=== PATIENT | male | born 1965 | race Two or more races ===

== ENCOUNTER 2018-05-09 12:55 | Inpatient (IN) | payer MEDICARE, OTHER ==
[~2018-05-09] VITALS: Ht 167.6 cm; Wt 97.1 kg
[2018-05-09] MEDS ORDERED: MAG HYDROX/AL HYDROX/SIMETH 30 ML UDC PO PRN (17:30)
[2018-05-09] MEDS ORDERED: ACETAMINOPHEN 325 MG TABLET PO PRN (17:30)
[2018-05-09] MEDS ORDERED: MAGNESIUM HYDROXIDE 30 ML UDC PO PRN (17:30)
--- NOTE | 2018-05-09 19:00 | NUR ---
GPS TEST OPERATOR NOTES: ADMITTED A 52YO MALE FROM [facility] ON 5150 HOLD FOR GRAVE DISABILITY. PATIENT WAS INITIALLY ADMITTED BY DAY SHIFT STAFF. PATIENT SEEN BY MANAGER DATA WAREHOUSE WALKING AROUND THE UNIT. PER HOLD PATIENT WAS FOUND UNRESPONSIVE INSIDE HIS VEHICLE, HE'S LIVING IN HIS CAR FOR SEVERAL WEEKS NOW, UNABLE TO STATE PLAN FOR SELF CARE, AND PATIENT WAS CONFUSED AND AGITATED. UPON FACE TO FACE EVALUATION, PATIENT PRESENTS ALERT AND ORIENTED X2-3, AMBULATORY, APPEARS UNKEMPT, DISHEVELED, POOR HYGIENE. NOT ABLE TO FOLLOW THROUGH A MEANINGFUL CONVERSATION. MANAGER DATA WAREHOUSE ASKED PATIENT TO SIGN ADMISSION PAPERS, PATIENT INITIALLY SIGNED A FEW PAGES OF THE ADMISSION PACKET, HOWEVER TOWARDS THE MIDDLE PART, PATIENT STARTED TO CRUMPLE PAPERS, AND LUNA INCOMPREHENSIBLE FIGURES ON THE ADMISSION PAPERS. ALL THESE PAPERS PLACED IN THE CHART AND WITNESSED BY MANAGER DATA WAREHOUSE. PATIENT GIVEN A QUICK ORIENTATION OF THE UNIT, STAFF, CARE PLAN AND DOCTORS. PATIENT EXPLAINED REGARDING HIS HOLD, PATIENT RESPONDED IN A SARCASTIC WAY, STATING "I AM ONLY HERE UNTIL 1238 PM TOMORROW" MANAGER DATA WAREHOUSE THEN EXPLAINED THAT HE IS ON A LEGAL HOLD AND THAT HE NEEDS TO BE EVALUATED BY THE DOCTOR FIRST. THE PATIENT DID NOT AGREE TO WHAT THE MANAGER DATA WAREHOUSE SAID, SO HE LEFT THE STATION MUMBLING AND DISAPPOINTED OF THE NURSE'S RESPONSE. PATIENT ALSO NOTED TO BE GUARDED AND UNPREDICTABLE, SUSPICIOUS OF THE SURROUNDINGS AROUND HIM. HE IS ALSO NOTED TO BE ANSWERING QUESTIONS INCONGRUENT TO THE TOPIC. DR. GOLDSMITH AND YUN MORGAN MADE AWARE OF THE ADMISSION, CATHY REMINDED OF THE MEDICATIONS FOR RECONCILIATION. HE CALLED THE UNIT STATING THAT HE WILL STUDY THROUGH THE LIST OF MEDICATIONS THE PATIENT HAS AN EXTENSIVE HISTORY MEDICALLY. ACCUCHECK DONE. SKIN AND BODY ASSESSMENT DONE WITH ASTRID OZUNA. NOTED SCABBING AND REDNESS ON THE ON BOTH ARMS/WRISTS AREA, AND ON KNEE AREA. PICTURES TAKEN AND PLACED IN THE CHART.PATIENT WAS COOPERATIVE THROUGHOUT THIS PROCESS OF THE ADMISSION. BELONGINGS AND CONTRABAND CHECKED. Q15 MIN CHECKS INITIATED. CARE PLAN ACKNOWLEDGED AND CARRIED OUT. SAFETY AND FALL PRECAUTIONS OBSERVED. WILL MONITOR PATIENT'S MOOD AND BEHAVIOR.
[2018-05-09 20:00] VITALS: BP 137/74
[2018-05-09] MEDS ORDERED: DEXTROSE 50%-WATER 50 ML DISP.SYRIN IV PRN ×2 (21:00→21:30)
[2018-05-09] MEDS ORDERED: INSULIN REGULAR, HUMAN 100 UNIT/ML 3 ML VIAL SQ PRN (21:00)
[2018-05-09] MEDS ORDERED: BLOOD SUGAR DIAGNOSTIC 1 EACH STRIP VI SCH (22:00)
[2018-05-09] MEDS ORDERED: ENOX40DI SUBCUT (22:02)
[2018-05-09] MEDS ORDERED: INSU100V7 SQ (22:02)
[2018-05-09] MEDS ORDERED: ATOR40TA PO (22:02)
[2018-05-09] MEDS ORDERED: SPIR25TA6 PO (22:02)
[2018-05-09] MEDS ORDERED: DIVA500T4 PO (22:02)
[2018-05-09] MEDS ORDERED: LISI2.5T2 PO (22:02)
[2018-05-09] MEDS ORDERED: LEVO88TA5 PO (22:02)
[2018-05-09] MEDS ORDERED: NICO-676 TP (22:02)
[2018-05-09] MEDS ORDERED: BUDE10.22 INH (22:02)
[2018-05-09] MEDS ORDERED: ALLO300T2 PO (22:02)
[2018-05-09] MEDS ORDERED: INSU100C10 SQ (22:02)
[2018-05-09] MEDS ORDERED: FURO20TA4 PO (22:02)
[2018-05-09] MEDS ORDERED: RANI300T4 PO (22:02)
[2018-05-09] MEDS ORDERED: BENZ2TAB7 PO (22:02)
[2018-05-09] MEDS ORDERED: RISP2TAB23 PO (22:02)
[2018-05-09] MEDS: BLOOD SUGAR DIAGNOSTIC 1 EACH STRIP IN SCH (22:23)
[2018-05-09] MEDS: *INSULIN REGULAR(HUMULIN R)HUM 100 UNIT/ML VIAL SQ PRN (23:17)
--- NOTE | 2018-05-10 06:02 | NUR ---
GPS RN NOTES: PATIENT REFUSED TO HAVE THE MRSA BE DONE. PER PATIENT "I DON'T THINK I HAVE IT". WILL ENDORSE TO DAY SHIFT NURSE.
[2018-05-10] MEDS: BLOOD SUGAR DIAGNOSTIC 1 EACH STRIP IN SCH ×4 (07:30→22:06)
[2018-05-10 08:00] VITALS: BP 156/85
[2018-05-10 08:05] LABS: ALBUMIN 3.6 g/dL (3.4-5.0); BILIRUBIN,TOTAL 0.6 mg/dL (0.2-1.0); CALCIUM, SERUM 9.2 mg/dL (8.5-10.1); CREATININE 1.1 mg/dL (0.6-1.3); POTASSIUM 4.1 mmol/L (3.5-5.1); TOTAL PROTEIN, SERUM 6.9 g/dL (6.4-8.2)
[2018-05-10 16:00] VITALS: BP 145/76
[2018-05-10] MEDS: risperiDONE 1 MG TABLET PO SCH (18:03)
[2018-05-10] MEDS: BENZTROPINE MESYLATE (1 MG) 1 MG TABLET PO SCH (18:04)
[2018-05-10] MEDS: LORAZEPAM 0.5 MG TABLET PO PRN (18:05)
[2018-05-10] MEDS: ATORVASTATIN 40 MG TABLET PO SCH (18:22)
[2018-05-10] MEDS: INSULIN LISPRO/ASPART 100 UNIT/ML CARTRIDGE SQ SCH (18:27)
--- NOTE | 2018-05-10 19:30 | NUR ---
Received pt awake and in bed; no s/s or complaints of pain at this time. Pt is displaying no s/s of acute/apparent distress at this time. Pt's RR is WNL: unlabored with equal rise and fall of the chest. Pt. is A&Ox3 on room air with a SpO2 of 98. Pt. is med compliant, labile mood, and irritable. Pt denies SI/HI at this time. Pt. assisted with turning and repositioning q2hrs and PRN for comfort and circulation. Pt. has no needs at this time except a "diet coke" but unable to obtain. Pt. educated on the use of the call santos. Pt bed side rails up x2 for safety, bed is locked and in low position; will continue to monitor and maintain safety.
[2018-05-10 20:00] VITALS: BP 150/73
[2018-05-10] MEDS: DIVALPROEX SODIUM 500 MG TABLET.DR PO SCH (20:21)
[2018-05-10] MEDS: INSULIN GLARGINE, 100 UNIT/ML CARTRIDGE SQ SCH (22:12)
[2018-05-10] MEDS: *INSULIN REGULAR(HUMULIN R)HUM 100 UNIT/ML VIAL SQ PRN (22:14)
[2018-05-11] MEDS: BLOOD SUGAR DIAGNOSTIC 1 EACH STRIP IN SCH ×4 (07:41→21:42)
[2018-05-11 08:00] VITALS: BP 142/80
[2018-05-11] MEDS: INSULIN REGULAR, HUMAN 100 UNIT/ML 3 ML VIAL SQ PRN ×3 (08:15→17:36)
[2018-05-11] MEDS: INSULIN LISPRO/ASPART 100 UNIT/ML CARTRIDGE SQ SCH ×2 (08:16→17:38)
[2018-05-11] MEDS: FLUTICASONE/VILANTEROL 1 EACH BLST.W.DEV IH SCH (08:33)
[2018-05-11] MEDS: PANTOPRAZOLE 40 MG TABLET.DR PO SCH (08:36)
[2018-05-11] MEDS: LEVOTHYROXINE SODIUM 88 MCG TABLET PO SCH (08:36)
[2018-05-11] MEDS: BENZTROPINE MESYLATE (1 MG) 1 MG TABLET PO SCH ×2 (08:37→16:45)
[2018-05-11] MEDS: risperiDONE 1 MG TABLET PO SCH ×2 (08:37→16:45)
[2018-05-11] MEDS: DIVALPROEX SODIUM 500 MG TABLET.DR PO SCH ×2 (08:37→21:42)
[2018-05-11] MEDS: SPIRONOLACTONE 25 MG TABLET PO SCH ×2 (08:40→16:44)
[2018-05-11] MEDS: NICOTINE PATCH (14MG) 14 MG PATCH.TD24 TD SCH (08:41)
[2018-05-11] MEDS: LISINOPRIL (5MG) 5 MG TABLET PO SCH (08:41)
[2018-05-11] MEDS: FUROSEMIDE 20 MG TABLET PO SCH (09:17)
[2018-05-11] MEDS: ALLOPURINOL 100 MG TABLET PO SCH (09:17)
--- NOTE | 2018-05-11 11:57 | NUR ---
KWADWO called the pt's father, Misha ([phone]), and left a message on his voicemail stating that the SW would like to discuss the pt's treatment and discharge plan when he has an opportunity.
--- NOTE | 2018-05-11 12:34 | NUR ---
SW called the pt's father, Misha Pino ([phone]), and discussed the pt's treatment and discharge plan. The SW informed him that the pt's psychiatrist, Dr. Blackman, is recommending that the pt be placed in a facility short term. The SW explained how the facility would benefit the pt and the pt's father requested that the pt be placed somewhere local to him. SW stated that she would send out referrals but cannot guarantee that he will get accepted. SW informed the pt's father that she would keep him updated.
--- NOTE | 2018-05-11 12:36 | NUR ---
Initial Discharge Plan: Pt currently lives alone in a [address] apartment located at [address] [place] [address]. Per pt, he would like to return when he is discharged from the hospital. Pt's psychiatrist, Dr. Blackman, would like the pt to be placed in a facility short term before returning home. SW will work with the pt and the MD regarding appropriate discharge planning. SW will form a safe and proper discharge.
[2018-05-11 16:00] VITALS: BP 152/85
[2018-05-11] MEDS: ATORVASTATIN 40 MG TABLET PO SCH (17:29)
[2018-05-11 20:00] VITALS: BP 139/79
[2018-05-11] MEDS: INSULIN GLARGINE, 100 UNIT/ML CARTRIDGE SQ SCH (21:55)
[2018-05-12 08:00] VITALS: BP 142/79
[2018-05-12] MEDS: BLOOD SUGAR DIAGNOSTIC 1 EACH STRIP IN SCH ×4 (08:13→23:05)
[2018-05-12] MEDS: INSULIN REGULAR, HUMAN 100 UNIT/ML 3 ML VIAL SQ PRN ×3 (08:17→17:03)
[2018-05-12] MEDS: LISINOPRIL (5MG) 5 MG TABLET PO SCH (08:19)
[2018-05-12] MEDS: LEVOTHYROXINE SODIUM 88 MCG TABLET PO SCH (08:19)
[2018-05-12] MEDS: SPIRONOLACTONE 25 MG TABLET PO SCH ×2 (08:19→16:09)
[2018-05-12] MEDS: risperiDONE 1 MG TABLET PO SCH ×2 (08:19→16:09)
[2018-05-12] MEDS: ALLOPURINOL 100 MG TABLET PO SCH (08:20)
[2018-05-12] MEDS: FUROSEMIDE 20 MG TABLET PO SCH (08:20)
[2018-05-12] MEDS: BENZTROPINE MESYLATE (1 MG) 1 MG TABLET PO SCH ×2 (08:20→16:09)
[2018-05-12] MEDS: PANTOPRAZOLE 40 MG TABLET.DR PO SCH (08:20)
[2018-05-12] MEDS: NICOTINE PATCH (14MG) 14 MG PATCH.TD24 TD SCH (08:21)
[2018-05-12] MEDS: FLUTICASONE/VILANTEROL 1 EACH BLST.W.DEV IH SCH (08:21)
[2018-05-12] MEDS: DIVALPROEX SODIUM 500 MG TABLET.DR PO SCH ×2 (08:31→23:04)
[2018-05-12] MEDS: INSULIN LISPRO/ASPART 100 UNIT/ML CARTRIDGE SQ SCH ×2 (08:32→17:35)
[2018-05-12 16:00] VITALS: BP 146/85
[2018-05-12] MEDS: ATORVASTATIN 40 MG TABLET PO SCH (17:02)
--- NOTE | 2018-05-12 19:45 | NUR ---
RN NOTES Received pt awake in the hallway; no s/s or complaints of pain at this time. Pt is displaying no s/s of acute/apparent distress at this time. Pt's RR is WNL: unlabored with equal rise and fall of the chest. Pt. is A&Ox2 on room air with a SpO2 of 98. Pt. is med compliant, restless and irritable. Pt denies SI/HI at this time. Pt. has been asking to change his room without explanations.Pt. educated on the use of the call santos. Pt bed side rails up x2 for safety, bed is locked and in low position; will continue to monitor and maintain safety.
[2018-05-12 20:00] VITALS: BP 129/69
[2018-05-12] MEDS: ZOLPIDEM TARTRATE 10 MG TABLET PO PRN (23:04)
[2018-05-12] MEDS: INSULIN GLARGINE, 100 UNIT/ML CARTRIDGE SQ SCH (23:12)
[2018-05-13 08:00] VITALS: BP 145/87
[2018-05-13] MEDS: BLOOD SUGAR DIAGNOSTIC 1 EACH STRIP IN SCH ×4 (08:05→21:53)
[2018-05-13] MEDS: INSULIN LISPRO/ASPART 100 UNIT/ML CARTRIDGE SQ SCH ×2 (08:25→18:03)
[2018-05-13] MEDS: INSULIN REGULAR, HUMAN 100 UNIT/ML 3 ML VIAL SQ PRN ×3 (08:26→18:04)
[2018-05-13] MEDS: DIVALPROEX SODIUM 500 MG TABLET.DR PO SCH ×2 (09:30→21:53)
[2018-05-13] MEDS: BENZTROPINE MESYLATE (1 MG) 1 MG TABLET PO SCH ×2 (09:31→17:19)
[2018-05-13] MEDS: LEVOTHYROXINE SODIUM 88 MCG TABLET PO SCH (09:31)
[2018-05-13] MEDS: risperiDONE 1 MG TABLET PO SCH ×2 (09:31→17:19)
[2018-05-13] MEDS: SPIRONOLACTONE 25 MG TABLET PO SCH ×2 (09:31→17:19)
[2018-05-13] MEDS: FUROSEMIDE 20 MG TABLET PO SCH (09:31)
[2018-05-13] MEDS: PANTOPRAZOLE 40 MG TABLET.DR PO SCH (09:31)
[2018-05-13] MEDS: NICOTINE PATCH (14MG) 14 MG PATCH.TD24 TD SCH (09:32)
[2018-05-13] MEDS: LISINOPRIL (5MG) 5 MG TABLET PO SCH (09:32)
[2018-05-13] MEDS: ALLOPURINOL 100 MG TABLET PO SCH (09:32)
[2018-05-13] MEDS: FLUTICASONE/VILANTEROL 1 EACH BLST.W.DEV IH SCH (09:33)
--- NOTE | 2018-05-13 11:30 | NUR ---
pt's father calling in and wanted to visit today.spoke with pt. pt. deferring father's visit till tomorrow.father notified.
[2018-05-13 16:00] VITALS: BP 123/56
[2018-05-13] MEDS: ATORVASTATIN 40 MG TABLET PO SCH (17:19)
--- NOTE | 2018-05-13 19:30 | NUR ---
GPS RN NOTE, RECEIVED PATIENT AWAKE AND IN BED, NO S/S OR COMPLAINTS OF PAIN AT THIS TIME. PATIENT IS DISPLAYING NO S/S OF APPARENT DISTRESS AT THIS TIME. PATIENT BREATHING IS UNLABORED WITH EQUAL RISE AND FALL OF THE CHEST. PATIENT IS ALERT AND ORIENTED X 1-2 ON ROOM AIR WITH A SPO2 OF 98%. PATIENT IS COMPLIANT WITH MEDICATION, COOPERATIVE, ANXIOUS, DISORGANIZED, PARANOID, AND NEEDS REDIRECTION. PATIENT IS CONFUSED BUT DENIES SUICIDE IDEATIONS AND HOMICIDAL IDEATIONS AT THIS TIME. PATIENT ASSISTED WITH TURNING AND REPOSITIONING Q 2HRS AND PRN FOR COMFORT AND CIRCULATION. PATIENT HAS NO NEEDS AT THIS TIME. PATIENT EDUCATED ON THE USE OF THE CALL SINGH. PATIENT BED SIDE RAILS UP X 2 FOR SAFETY, BED IS LOCKED, LOW, AND I WILL CONTINUE TO MONITOR AND MAINTAIN SAFETY Q15 MIN WITH THE HELP OF STAFF.
[2018-05-13 20:00] VITALS: BP 139/84
--- NOTE | 2018-05-13 21:53 | NUR ---
GPS RN NOTE, PERFORMED ACCU CHECK ON PATIENT WITH A BLOOD SUGAR RESULT OF 104. NO REGULAR INSULIN PER SLIDING SCALE. GAVE 25 UNITS OF LANTUS SQ HS ORDERED. GAVE SNACK AND JUICE TO PATIENT. WILL CONTINUE TO MONITOR THIS PATIENT.
[2018-05-13] MEDS: INSULIN GLARGINE, 100 UNIT/ML CARTRIDGE SQ SCH (21:58)
[2018-05-14 08:08] VITALS: BP 160/81
[2018-05-14] MEDS: BLOOD SUGAR DIAGNOSTIC 1 EACH STRIP IN SCH ×4 (09:16→21:42)
[2018-05-14] MEDS: ALLOPURINOL 100 MG TABLET PO SCH (09:17)
[2018-05-14] MEDS: risperiDONE 1 MG TABLET PO SCH ×2 (09:17→17:47)
[2018-05-14] MEDS: LEVOTHYROXINE SODIUM 88 MCG TABLET PO SCH (09:17)
[2018-05-14] MEDS: DIVALPROEX SODIUM 500 MG TABLET.DR PO SCH ×2 (09:17→21:28)
[2018-05-14] MEDS: PANTOPRAZOLE 40 MG TABLET.DR PO SCH (09:18)
[2018-05-14] MEDS: BENZTROPINE MESYLATE (1 MG) 1 MG TABLET PO SCH ×2 (09:18→17:47)
[2018-05-14] MEDS: NICOTINE PATCH (14MG) 14 MG PATCH.TD24 TD SCH (09:18)
[2018-05-14] MEDS: LISINOPRIL (5MG) 5 MG TABLET PO SCH (09:19)
[2018-05-14] MEDS: FUROSEMIDE 20 MG TABLET PO SCH (09:20)
[2018-05-14] MEDS: FLUTICASONE/VILANTEROL 1 EACH BLST.W.DEV IH SCH (09:20)
[2018-05-14] MEDS: SPIRONOLACTONE 25 MG TABLET PO SCH ×2 (09:20→17:47)
[2018-05-14] MEDS: INSULIN LISPRO/ASPART 100 UNIT/ML CARTRIDGE SQ SCH ×2 (09:25→17:50)
[2018-05-14] MEDS: INSULIN REGULAR, HUMAN 100 UNIT/ML 3 ML VIAL SQ PRN ×3 (09:26→17:43)
[2018-05-14 16:14] VITALS: BP 136/69
[2018-05-14] MEDS: ATORVASTATIN 40 MG TABLET PO SCH (17:47)
--- NOTE | 2018-05-14 19:30 | NUR ---
GPS RN NOTE, RECEIVED PATIENT AWAKE AND IN BED, NO S/S OR COMPLAINTS OF PAIN AT THIS TIME. PATIENT IS DISPLAYING NO S/S OF APPARENT DISTRESS AT THIS TIME. PATIENT BREATHING IS UNLABORED WITH EQUAL RISE AND FALL OF THE CHEST. PATIENT IS ALERT AND ORIENTED X 1-2 ON ROOM AIR WITH A SPO2 OF 98%. PATIENT IS COMPLIANT WITH MEDICATION, COOPERATIVE, ANXIOUS, DISORGANIZED, PARANOID, AND NEEDS REDIRECTION. PATIENT DENIES SUICIDE IDEATIONS AND HOMICIDAL IDEATIONS AT THIS TIME. PATIENT ASSISTED WITH TURNING AND REPOSITIONING Q 2HRS AND PRN FOR COMFORT AND CIRCULATION. PATIENT HAS NO NEEDS AT THIS TIME. PATIENT EDUCATED ON THE USE OF THE CALL SINGH. PATIENT BED SIDE RAILS UP X 2 FOR SAFETY, BED IS LOCKED, LOW, AND I WILL CONTINUE TO MONITOR AND MAINTAIN SAFETY Q15 MIN WITH THE HELP OF STAFF.
--- NOTE | 2018-05-14 20:30 | NUR ---
GPS RN NOTE, PATIENT REFUSED TO HAVE PICTURES TAKEN TODAY. OFFERED TO TAKE PICTURES THREE TIMES AND STILL PATIENT REFUSED STATING, " I FINE I DON'T WANT TO TAKE PICTURES TODAY". EDUCATED THIS PATIENT ON OUR PICTURE POLICY. WILL CONTINUE TO MONITOR THIS PATIENT.
[2018-05-14 20:38] VITALS: BP 129/85
[2018-05-14] MEDS: INSULIN GLARGINE, 100 UNIT/ML CARTRIDGE SQ SCH (21:42)
--- NOTE | 2018-05-14 21:42 | NUR ---
GPS RN NOTE, PERFORMED ACCU CHECK ON PATIENT WITH A BLOOD SUGAR RESULT OF 67. NO REGULAR INSULIN PER SLIDING SCALE. PATIENT REFUSED 25 UNITS OF LANTUS SQ HS. GAVE TUNA SANDWICH AND JUICE TO PATIENT. PATIENT TOLERATED JUICE AND TUNA SANDWICH WELL. WILL CONTINUE TO MONITOR THIS PATIENT.
[2018-05-15 08:00] VITALS: BP 134/82
--- NOTE | 2018-05-15 08:31 | NUR ---
KWADWO faxed three referrals for the pt: [facility]: [phone] [facility]: [phone] [facility]: [phone]
--- NOTE | 2018-05-15 08:33 | NUR ---
SW called the pt's father, Misha Pino ([phone]), and left a voicemail stating that the SW sent three referrals for the pt and is just waiting to hear back from the facilities. When the SW gets any acceptances or denials, she will call back and let the pt's father know.
[2018-05-15] MEDS: BLOOD SUGAR DIAGNOSTIC 1 EACH STRIP IN SCH ×4 (08:56→21:14)
[2018-05-15] MEDS: SPIRONOLACTONE 25 MG TABLET PO SCH ×2 (08:57→15:55)
[2018-05-15] MEDS: LISINOPRIL (5MG) 5 MG TABLET PO SCH (08:57)
[2018-05-15] MEDS: PANTOPRAZOLE 40 MG TABLET.DR PO SCH (08:58)
[2018-05-15] MEDS: FUROSEMIDE 20 MG TABLET PO SCH (08:58)
[2018-05-15] MEDS: LEVOTHYROXINE SODIUM 88 MCG TABLET PO SCH (08:58)
[2018-05-15] MEDS: BENZTROPINE MESYLATE (1 MG) 1 MG TABLET PO SCH ×2 (08:59→15:55)
[2018-05-15] MEDS: NICOTINE PATCH (14MG) 14 MG PATCH.TD24 TD SCH (08:59)
[2018-05-15] MEDS: ALLOPURINOL 100 MG TABLET PO SCH (08:59)
[2018-05-15] MEDS: risperiDONE 1 MG TABLET PO SCH ×2 (08:59→18:18)
--- NOTE | 2018-05-15 09:35 | NUR ---
Meg ([phone]) from [facility] called the SW and stated that the pt was denied due to psychiatric issues.
[2018-05-15] MEDS: INSULIN LISPRO/ASPART 100 UNIT/ML CARTRIDGE SQ SCH ×2 (10:00→18:14)
[2018-05-15] MEDS: INSULIN REGULAR, HUMAN 100 UNIT/ML 3 ML VIAL SQ PRN ×3 (10:03→18:16)
[2018-05-15] MEDS: FLUTICASONE/VILANTEROL 1 EACH BLST.W.DEV IH SCH (10:04)
[2018-05-15] MEDS: DIVALPROEX SODIUM 500 MG TABLET.DR PO SCH ×2 (10:07→20:43)
[2018-05-15] MEDS: ATORVASTATIN 40 MG TABLET PO SCH (15:55)
[2018-05-15] MEDS: LORAZEPAM 0.5 MG TABLET PO PRN (15:55)
[2018-05-15 16:00] VITALS: BP 134/84
[2018-05-15 20:00] VITALS: BP 117/72
[2018-05-15] MEDS: INSULIN GLARGINE, 100 UNIT/ML CARTRIDGE SQ SCH (21:15)
[2018-05-15] MEDS: ZOLPIDEM TARTRATE 10 MG TABLET PO PRN (22:30)
--- NOTE | 2018-05-16 07:10 | NUR ---
GPS RN NOTE PT FOUND TO BE HITTING WALL AND AGITATED, USE OF VERBAL DEESCALATION TECHNIQUES AND ASSISTED PT BACK TO ROOM TO PROMOTE A QUITE ENVIRONMENT.
[2018-05-16] MEDS: LORAZEPAM 0.5 MG TABLET PO PRN (07:18)
--- NOTE | 2018-05-16 07:23 | NUR ---
GPS RN NOTE PT REFUSED ATIVAN 1MG PO FOR ANXIETY. PT STATED "NO I DON'T WANT ANY PILLS I DON'T WANT ANY WATER". PT FOUND TO HAVE PLACED BEDSIDE TABLE UPSIDE DOWN ON BED AND SITTING ON IT. INFORMED CHARGE NURSE SHRADDHA.
[2018-05-16] MEDS: LEVOTHYROXINE SODIUM 88 MCG TABLET PO SCH (07:30)
[2018-05-16] MEDS: PANTOPRAZOLE 40 MG TABLET.DR PO SCH (07:30)
[2018-05-16] MEDS: BLOOD SUGAR DIAGNOSTIC 1 EACH STRIP IN SCH ×4 (07:30→21:16)
--- NOTE | 2018-05-16 07:43 | NUR ---
GPS RN NOTE RECEIVED ORDERS FROM DR. YOUNG FOR ZYPREXA 10MG IM X 1 CONFIRMED VIA TELEPHONE READ BACK.
[2018-05-16 08:00] VITALS: BP 158/60
[2018-05-16] MEDS ORDERED: OLANZAPINE 10 MG VIAL IM ONE ×2 (08:00→21:00)
--- NOTE | 2018-05-16 08:03 | NUR ---
MS RN NOTE ZYPREXA 10MG IM ADMINISTERED. PT TOLERATED ADMINISTRATION WELL, WILL CONTINUE TO MONITOR
--- NOTE | 2018-05-16 08:45 | NUR ---
GPS RN NOTE PT RESTING IN BED, SLEEPING. BREATHING IS EVEN AND UNLABORED, NO ACUTE DISTRESS NOTED AT THIS TIME, WILL CONTINUE TO MONITOR.
[2018-05-16] MEDS: risperiDONE 1 MG TABLET PO SCH ×3 (09:00→17:01)
[2018-05-16] MEDS: FLUTICASONE/VILANTEROL 1 EACH BLST.W.DEV IH SCH (09:00)
[2018-05-16] MEDS: NICOTINE PATCH (14MG) 14 MG PATCH.TD24 TD SCH (09:00)
[2018-05-16] MEDS: FUROSEMIDE 20 MG TABLET PO SCH (09:00)
[2018-05-16] MEDS: LISINOPRIL (5MG) 5 MG TABLET PO SCH (09:00)
[2018-05-16] MEDS: INSULIN LISPRO/ASPART 100 UNIT/ML CARTRIDGE SQ SCH ×2 (09:00→17:33)
[2018-05-16] MEDS: DIVALPROEX SODIUM 500 MG TABLET.DR PO SCH ×2 (09:00→21:00)
[2018-05-16] MEDS: ALLOPURINOL 100 MG TABLET PO SCH (09:00)
[2018-05-16] MEDS: SPIRONOLACTONE 25 MG TABLET PO SCH ×3 (09:00→17:01)
[2018-05-16] MEDS: BENZTROPINE MESYLATE (1 MG) 1 MG TABLET PO SCH ×3 (09:00→17:02)
--- NOTE | 2018-05-16 10:00 | NUR ---
GPS RN NOTE PT IN DEEP SLEEP AFTER ZYPREXA IM ADMINISTRATION. AT RISK FOR ASPIRATION WITH MEDICATIONS, AM MEDICATIONS HELD FOR NOW. BREATHING IS EVEN AND UNLABORED, NOT ACUTE DISTRESS NOTED AT THIS TIME.
--- NOTE | 2018-05-16 11:00 | NUR ---
GPS RN NOTE PT UP AND WALKING AROUND UNIT, OFFERED AM MEDICATIONS, HOWEVER PT REFUSED AND STATED HE DOES NOT WANT TO TAKE ANY MEDICATIONS AT THIS TIME AND THAT HE TOOK MEDICATIONS ALREADY. EXPLAINED THAT PT HAS NOT YET TAKEN AM MEDICATIONS YET, STRONGLY ADVISE THAT PT TAKE THEM AND PROVIDED EDUCATION REGARDING RISKS AND BENEFITS, PT STRONGLY REFUSED AND WALKED AWAY FROM THE NURSE. INFORMED CHARGE NURSE SHRADDHA
--- NOTE | 2018-05-16 12:00 | NUR ---
GPS RN NOTE ACCU CHECK: 103, NO COVERAGE AT THIS TIME. ENCOURAGED PT TO EAT LUNCH TRAY.
[2018-05-16] MEDS: *INSULIN REGULAR(HUMULIN R)HUM 100 UNIT/ML VIAL SQ PRN (12:17)
[2018-05-16 16:00] VITALS: BP 125/60
[2018-05-16] MEDS: INSULIN REGULAR, HUMAN 100 UNIT/ML 3 ML VIAL SQ PRN (16:45)
--- NOTE | 2018-05-16 17:00 | NUR ---
GPS RN NOTE ACCU CHECK 100, NO COVERAGE AT THIS TIME.
--- NOTE | 2018-05-16 17:01 | NUR ---
GPS RN PT REFUSING MEDICATIONS THE NURSE WENT TO THE PT ROOM TO ADMINISTER AFTERNOON MEDICATIONS ORDERED, THE PT REFUSED AND STATED "I CAN'T TAKE PILLS, I CAN'T DRINK ANYTHING, I CAN'T EAT, IT WILL INCREASE MY STAY HERE". THE NURSE EXPLAINED TO THE PT THAT COMPLIANCE WITH MEDICATIONS, EATING AND DRINKING WILL ACTUALLY DECREASE THE PT STAY AND THAT NON COMPLIANCE WILL INCREASE THE PT STAY. THE NURSE PROVIDED EDUCATION REGARDING WHAT MEDICATIONS THE PT IS REFUSING WELL RISKS OF REFUSAL. THE PT STATED "I TOLD YOU I CAN'T DRINK ANYTHING IT WILL MAKE ME STAY HERE LONGER, DON'T YOU UNDERSTAND MY INSTINCT?" THE NURSE INQUIRED TO WHAT THE "INSTINCT" MEANT BUT THE PT STATED "YOU DON'T WANT THE DETAILS". THE NURSE AGAIN OFFERED THE MEDICATION FOR THE PT, HOWEVER THEY SAID "NO BECAUSE I CAN'T DRINK OR EAT ANYTHING".
[2018-05-16] MEDS: ATORVASTATIN 40 MG TABLET PO SCH ×2 (17:02→17:24)
--- NOTE | 2018-05-16 17:20 | NUR ---
GPS RN PT REFUSING MEDICATIONS THE NURSE WENT BACK TO THE PT ROOM TO OFFER MEDICATIONS AFTER PROVIDING THE PT SOME TIME ALONE. THE NURSE OFFERED MEDICATIONS ORDERED, THE PT STATED "I ALREADY TOLD YOU I CAN'T DRINK OR EAT ANYTHING". THE NURSE ASKED "WHAT CAN WE DO SO THAT YOU WILL TAKE YOUR MEDICATIONS?" THE PT STATED "YOU CAN MAKE ME DEAF". THE NURSE ASKED "WHAT MAKES YOU WANT TO BE DEAF?" AND "ARE YOU HEARING VOICES?" THE PT DENIED AUDITORY HALLUCINATIONS AT THIS TIME. THE PT THEN STATED "I CANT EAT OR DRINK FOR THREE DAYS AT LEAST SO I CAN LEAVE". THE NURSE ASKED "IS YOUR WISH TO FROM STARVATION?" THE PT STATED "THAT'S THE ONLY WAY I CAN LEAVE THIS PLACE". THE NURSE ASKED "DO YOU WISH TO KILL YOURSELF THEN?" THE PT STATED "NO, I JUST CAN'T EAT OR DRINK SO I CAN LEAVE THIS PLACE". THE NURSE PROVIDED RISKS AND BENEFITS OF REFUSING MEDICATIONS, FOOD, AND FLUIDS, THE PT STILL REFUSED. CHARGE NURSE SHRADDHA INFORMED AND OFFERED MEDICATION AND FLUIDS TO THE PT, THE PT DECLINED AGAIN.
--- NOTE | 2018-05-16 17:52 | NUR ---
GPS RN NOTE THE NURSE WALKED INTO THE PT ROOM AND FOUND THAT THE PT WAS SLEEPING AND NOT EATING DINNER. THE NURSE ASKED THE PT IF HE WOULD BE ABLE TO EAT SOME FOOD, THE PT STATED "NO I ALREADY TOLD YOU". THE NURSE REMINDED THE PT THAT HIS LATEST BLOOD SUGAR CHECK WAS 100 AND THAT BECAUSE HE HAS DIABETES HE IS AT RISK OF BECOMING HYPOGLYCEMIC IF HE DOES NOT EAT FOOD REGULARLY. THE PT STATED "I DON'T NEED ANY FOOD". THE NURSE ENCOURAGED THE PT TO SIT UP AND ASSISTED THE PT WITH TRAY SET UP. THE NURSE OFFERED PM MEDICATIONS AGAIN, THE PT REFUSED AGAIN. THE NURSE ENCOURAGED THE PT TO EAT DINNER, PT SITTING UP AT EDGE OF BED WITH DINNER TRAY AT THIS TIME, WILL CONTINUE TO MONITOR.
--- NOTE | 2018-05-16 18:03 | NUR ---
GPS RN NOTE PT WALKED TO NURSING STATION AND BEGAN TO RAMBLE WITH SENTENCES THAT HAD NO MEANING OR CONTEXT. THE NURSE ASSISTED THE PT BACK TO HIS ROOM AND ASKED IF HE WOULD LIKE TO EAT HIS DINNER, THE PT STATED "NO I DON'T WANT ANY OF THAT". THE NURSE OFFERED TO FIND ALTERNATIVE FOOD AND DRINK, THE PT DECLINED. THE NURSE PROVIDED EDUCATION REGARDING PT DM DX AND RISK FOR HYPOGLYCEMIA, THE PT STATED "MY SUGAR IS FINE".
[2018-05-16 20:00] VITALS: BP 137/78
--- NOTE | 2018-05-16 20:30 | NUR ---
GPS RN NOTE PT. PACING IN THE HALLWAY VERY AGRESSIVE YELLING SCREAMING NOT FOLLOWING ANY REDIRECTIONS, OFFERDED PO ATIVAN BUT PT. REFUSED ATIVAN PO FOR ANXIETY. PT STATED "NO I DON'T WANT ANY PILLS I DON'T WANT ANY WATER AND ANY MEDS". PT. BEHAVIOR IS VERY UNCOOPERTIVE.
--- NOTE | 2018-05-16 20:52 | NUR ---
RN GPS NOTES DR. YOUNG NOTIFIED OF PT. BEHAVIOR ,PT. ROAMING AROUND THE UNIT UNPREDICALBLE, DELUSIONAL,DISORGNIZED, RESPONDING TO INTERNAL STIMULI TALKING NON SENSICAL WITH STAFF , HARD TO REDIRECT NOT FOLLOWING NURSES INSTRUCTIONS ,REDIRECTION , VERY INCOHERENT ,FLIGHT OF IDEAS PRESENT. PATIENT REFUSING TO TAKE HIS SCHEDUALE MEDS AND PRN ATIVAN, ALL THESE BEHAVIOR RELAYED TO PSYCH MD , RECEIVED ORDERED FROM DR. YOUNG FOR ZYPREXIA 10 MG IMX1 , PT. ASSISSTED TO BED , STANDBY ASSIST FROM SECURITY, ZYPREXIA GIVE ORDERED, WILL CONTINUE PATIENT MOOD AND BEHAVIOR
--- NOTE | 2018-05-16 20:52 | NUR ---
GPS RN NOTE ZYPREXA 10MG IM ADMINISTERED. PT TOLERATED ADMINISTRATION WELL, WILL CONTINUE TO MONITOR
[2018-05-16] MEDS: INSULIN GLARGINE, 100 UNIT/ML CARTRIDGE SQ SCH (21:17)
--- NOTE | 2018-05-16 21:30 | NUR ---
GPS RN NOTE PT RESTING HIS BED, COMFORTABLY. BREATHING IS EVEN AND UNLABORED, NO ACUTE DISTRESS NOTED AT THIS TIME, VITAL SIGNS WNL ,WILL CONTINUE TO MONITOR.
[2018-05-16 22:00] VITALS: BP 123/77
--- NOTE | 2018-05-16 22:00 | NUR ---
GPS RN NOTES: PT. REFUSED SCHEDUALE MEDS , ENCOURAGED EXPLANIED RISKS AND BENEFITS BUT PT. STILL REFUSED, PER PT. I DON'T WANT ANY MEDS.
--- NOTE | 2018-05-17 06:42 | NUR ---
GPS RN NOTE DURING SHIFT AFTER ZYPREXA IM GIVEN, PT. RESTING HIS BED, CALM COMFORTABLY, BREATHING IS EVEN AND UNLABORED, NO ACUTE DISTRESS NOTED AT THIS TIME, VITAL SIGNS WNL ,WILL CONTINUE TO MONITOR.
[2018-05-17] MEDS: BLOOD SUGAR DIAGNOSTIC 1 EACH STRIP IN SCH ×5 (07:36→21:10)
--- NOTE | 2018-05-17 07:39 | NUR ---
PLACED PATIENT ON 1:1 SITTER FOR AGGRESSIVE,COMBATIVE AND UNPREDICTABLE BEHAVIOR.,
[2018-05-17] MEDS: INSULIN LISPRO/ASPART 100 UNIT/ML CARTRIDGE SQ SCH ×2 (09:00→18:00)
[2018-05-17] MEDS: ALLOPURINOL 100 MG TABLET PO SCH (09:25)
[2018-05-17] MEDS: LEVOTHYROXINE SODIUM 88 MCG TABLET PO SCH (09:25)
[2018-05-17] MEDS: FUROSEMIDE 20 MG TABLET PO SCH (09:25)
[2018-05-17] MEDS: PANTOPRAZOLE 40 MG TABLET.DR PO SCH (09:25)
[2018-05-17] MEDS: risperiDONE 1 MG TABLET PO SCH ×3 (09:25→17:28)
[2018-05-17] MEDS: BENZTROPINE MESYLATE (1 MG) 1 MG TABLET PO SCH ×2 (09:25→17:28)
[2018-05-17] MEDS: NICOTINE PATCH (14MG) 14 MG PATCH.TD24 TD SCH (09:25)
[2018-05-17] MEDS: DIVALPROEX SODIUM 500 MG TABLET.DR PO SCH ×2 (09:25→20:29)
[2018-05-17] MEDS: SPIRONOLACTONE 25 MG TABLET PO SCH ×2 (09:25→17:28)
[2018-05-17] MEDS: FLUTICASONE/VILANTEROL 1 EACH BLST.W.DEV IH SCH (09:26)
[2018-05-17] MEDS: LISINOPRIL (5MG) 5 MG TABLET PO SCH (09:36)
[2018-05-17] MEDS: INSULIN REGULAR, HUMAN 100 UNIT/ML 3 ML VIAL SQ PRN ×3 (09:37→17:38)
--- NOTE | 2018-05-17 12:06 | NUR ---
pt is uncooperative, agitated, irritable. refused noon blood sugar check.
[2018-05-17] MEDS: LORAZEPAM 0.5 MG TABLET PO PRN (12:56)
--- NOTE | 2018-05-17 15:09 | NUR ---
SW called the pt's father, Misha ([phone]), and informed him that the pt is going to be discharged on Tuesday to [facility]. The SW explained the facility to him and then stated that the pt agreed to the placement.
[2018-05-17 16:00] VITALS: BP 122/71
[2018-05-17] MEDS: ATORVASTATIN 40 MG TABLET PO SCH (17:41)
[2018-05-17 20:22] VITALS: BP 134/75
[2018-05-17] MEDS: INSULIN GLARGINE, 100 UNIT/ML CARTRIDGE SQ SCH (21:10)
--- NOTE | 2018-05-17 21:58 | NUR ---
GPS RN NOTES: PT. REFUSED INSULLIN LANTUS , BLOOD SUGAR # 117 ENCOURAGED EXPLANIED RISKS AND BENEFITS BUT PT. STILL REFUSED, PER PT. I DON'T WANT ANY MEDS.
[2018-05-18] MEDS: LORAZEPAM 0.5 MG TABLET PO PRN ×3 (01:11→16:41)
--- NOTE | 2018-05-18 01:13 | NUR ---
GPS RN NOTES PT. C/O ANXIETY , ATIVAN 1 MG PO PRN GIVEN PER PT. REQUEST ,WILL CONTINUE TO MONITOR.
[2018-05-18 08:00] VITALS: BP 132/59
--- NOTE | 2018-05-18 08:00 | NUR ---
GPS RN AM NOTES PATIENT WALKING IN THE DAY ROOM, A/O X1/2,AGGRESSIVE CONFUSED. DELUSIONAL, UNPREDICTABLE,PARANOID GUARDED, WANDERS, PATIENT HAS NO ACUTE RESPIRATORY DISTRESS, V/S STABLE,WITH 1:1 SITTER ENCOURAGED TO ATTEND GROUP THERAPY. PATIENT MED COMPLIANT,SAFETY PRECAUTION MAINTAINED ALL THE TIME. PARANOID, DENIES PAIN. DENIES SI/HI. CONTRACT FOR SAFETY. WILL CONTINUE TO MONITOR Q 15 MINS.
[2018-05-18] MEDS: SPIRONOLACTONE 25 MG TABLET PO SCH ×2 (08:40→16:41)
[2018-05-18] MEDS: BLOOD SUGAR DIAGNOSTIC 1 EACH STRIP IN SCH ×4 (08:40→22:16)
[2018-05-18] MEDS: LEVOTHYROXINE SODIUM 88 MCG TABLET PO SCH (08:40)
[2018-05-18] MEDS: FUROSEMIDE 20 MG TABLET PO SCH (08:41)
[2018-05-18] MEDS: ALLOPURINOL 100 MG TABLET PO SCH (08:41)
[2018-05-18] MEDS: BENZTROPINE MESYLATE (1 MG) 1 MG TABLET PO SCH ×2 (08:41→16:41)
[2018-05-18] MEDS: PANTOPRAZOLE 40 MG TABLET.DR PO SCH (08:41)
[2018-05-18] MEDS: DIVALPROEX SODIUM 500 MG TABLET.DR PO SCH ×2 (08:41→22:19)
[2018-05-18] MEDS: NICOTINE PATCH (14MG) 14 MG PATCH.TD24 TD SCH (08:41)
[2018-05-18] MEDS: risperiDONE 1 MG TABLET PO SCH ×3 (08:42→16:41)
[2018-05-18] MEDS: LISINOPRIL (5MG) 5 MG TABLET PO SCH (08:43)
--- NOTE | 2018-05-18 08:44 | NUR ---
PT REFUSED BP CHECK-HELD LEW
[2018-05-18] MEDS: FLUTICASONE/VILANTEROL 1 EACH BLST.W.DEV IH SCH (08:56)
[2018-05-18] MEDS: INSULIN LISPRO/ASPART 100 UNIT/ML CARTRIDGE SQ SCH ×2 (08:59→17:12)
[2018-05-18] MEDS: INSULIN REGULAR, HUMAN 100 UNIT/ML 3 ML VIAL SQ PRN ×2 (09:00→11:33)
[2018-05-18 16:00] VITALS: BP 156/76
[2018-05-18] MEDS: ATORVASTATIN 40 MG TABLET PO SCH (17:11)
[2018-05-18 20:00] VITALS: BP 142/80
[2018-05-18] MEDS: INSULIN GLARGINE, 100 UNIT/ML CARTRIDGE SQ SCH (22:00)
[2018-05-19 08:00] VITALS: BP 139/86
[2018-05-19] MEDS: BLOOD SUGAR DIAGNOSTIC 1 EACH STRIP IN SCH ×3 (08:15→17:30)
[2018-05-19] MEDS: ALLOPURINOL 100 MG TABLET PO SCH (08:15)
[2018-05-19] MEDS: DIVALPROEX SODIUM 500 MG TABLET.DR PO SCH (08:15)
[2018-05-19] MEDS: PANTOPRAZOLE 40 MG TABLET.DR PO SCH (08:16)
[2018-05-19] MEDS: FUROSEMIDE 20 MG TABLET PO SCH (08:16)
[2018-05-19] MEDS: LEVOTHYROXINE SODIUM 88 MCG TABLET PO SCH (08:16)
[2018-05-19] MEDS: NICOTINE PATCH (14MG) 14 MG PATCH.TD24 TD SCH (08:16)
[2018-05-19] MEDS: LISINOPRIL (5MG) 5 MG TABLET PO SCH (08:16)
[2018-05-19] MEDS: SPIRONOLACTONE 25 MG TABLET PO SCH ×2 (08:16→16:09)
[2018-05-19] MEDS: BENZTROPINE MESYLATE (1 MG) 1 MG TABLET PO SCH ×2 (08:16→16:09)
[2018-05-19] MEDS: risperiDONE 1 MG TABLET PO SCH ×3 (08:16→16:09)
[2018-05-19] MEDS: INSULIN REGULAR, HUMAN 100 UNIT/ML 3 ML VIAL SQ PRN ×3 (08:18→19:21)
[2018-05-19] MEDS: FLUTICASONE/VILANTEROL 1 EACH BLST.W.DEV IH SCH (08:22)
[2018-05-19] MEDS: INSULIN LISPRO/ASPART 100 UNIT/ML CARTRIDGE SQ SCH ×2 (08:24→18:30)
--- NOTE | 2018-05-19 09:30 | NUR ---
RN-CO: PATIENT IS CALM AND COOPERATIVE TO CARE. HAS AN APPROPRIATE AFFECT, HE DENIED SUICIDAL AND HOMICIDAL IDEATION WELL COMMAND HALLUCINATION. NO ACUTE DISTRESS NOTED. DR GOLDSMITH CALLED AND ORDERED TO DISCONTINUE HIS HOLD AND DISCHARGE PATIENT TODAY. NOTED.
--- NOTE | 2018-05-19 09:35 | NUR ---
KWADWO called the pt's father, Misha ([phone]), and informed him that the pt will be [facility] to [facility] around 5-6PM. The pt's father stated that the pt appears to be in an improved state and he feels comfortable with this discharge plan.
--- NOTE | 2018-05-19 10:00 | NUR ---
RN-CO: DR ZHENG (VICE PRESIDENT UNDERWRITING) SEEN AND EXAMINED THE PATIENT AND MEDICALLY CLEARED HIM FOR DISCHARGE. ALL HIS BELONGINGS WILL BE GIVEN BACK TO THE PATIENT.THE FACILITY WILL PICK HIM UP BETWEEN 5-6 PM. PATIENT'S FATHER IS AWARE OF HIS DISCHARGE.
--- NOTE | 2018-05-19 15:20 | NUR ---
Discharge Note: Pt was discharged to [facility] ([facility]) located at [address], [place] [address]; ([phone]). The facility picked him up at around 5pm. Pts father, Misha ([phone]), was informed of this discharge. Upon discharge, the pt appeared to be in a dysphoric mood and presented with a flat affect. The pt stated, I am only going for short term and then I want to go back to my apartment. I will get my dad to help me when I need it. Pt denied both suicidal and homicidal ideation as well as auditory and visual hallucinations. Pt will be under the care of psychiatrist, Dr. Fox, located at [address] [place] [address]; and salary manager, Dr. Ulrich, located at [address], [place] [address]; .
[2018-05-19 16:01] VITALS: BP 125/74
[2018-05-19] MEDS: ATORVASTATIN 40 MG TABLET PO SCH (18:00)
--- NOTE | 2018-05-19 19:55 | NUR ---
GPS OBSTETRIC ANAESTHETIST NOTES: PATIENT IS DISCHARGED TO [facility]. PATIENT WAS PICKED UP BY [facility] STAFF. PATIENT IS EAGERLY WAITING FOR THIS DISCHARGE, LAERT AND ORIENTED X2, UNKEMPT, HOWEVER CHANGED INTO CLEAN GOWN HIS BELONGINGS ARE DIRTY OF THIS TIME. PATIENT DENIES ANY SUICIDAL INTENT OR PLANS THIS TIME. PERSONAL BELONGINGS SENT WITH PATIENT. DISCHARGE PACKET PROVIDED. PATIENT LEFT UNIT IN GOOD AND STABLE CONDITION.
== END 2018-05-19 19:55 | DRG 885 ==
LOC: GPS 17:06
PROVIDERS: ADMIT Psychiatry & Neurology Psychiatry; ATTEND Nurse Practitioner Acute Care
DX: F25.0 Schizoaffective disorder, bipolar type (principal); I11.0 Hypertensive heart disease with heart failure; E44.0 Moderate protein-calorie malnutrition; G93.40 Encephalopathy, unspecified; I50.32 Chronic diastolic (congestive) heart failure; Z59.0 Homelessness; E78.5 Hyperlipidemia, unspecified; M10.9 Gout, unspecified; Z80.3 Family history of malignant neoplasm of breast; Z82.49 Family history of ischemic heart disease and other diseases of the circulatory system; F17.210 Nicotine dependence, cigarettes, uncomplicated; G47.33 Obstructive sleep apnea (adult) (pediatric); F12.90 Cannabis use, unspecified, uncomplicated; E66.9 Obesity, unspecified; Z68.34 Body mass index [BMI] 34.0-34.9, adult; Z71.3 Dietary counseling and surveillance; E11.9 Type 2 diabetes mellitus without complications; Z91.19 Patient's noncompliance with other medical treatment and regimen; Z91.14 Patient's other noncompliance with medication regimen; D64.9 Anemia, unspecified; J44.9 Chronic obstructive pulmonary disease, unspecified
CPT/HCPCS: 36415; 71045-TC; 80053-TC; 80061-TC; 80164-TC; 82962-TC; 83880; J1815; J3490

== ENCOUNTER 2023-07-04 18:56 | Inpatient (IN) | payer MEDICARE, OTHER ==
[~2023-07-04] VITALS: Ht 177.8 cm; Wt 102.1 kg
[~2023-07-04 18:56] MED LIST: ALLO300T2 PO; ATOR40TA PO; BENZ2TAB7 PO; BUDE10.22 INH; DIVA500T4 PO; ENOX40DI SUBCUT; FURO20TA4 PO; INSU100C10 SQ; INSU100V7 SQ; LEVO88TA5 PO; LISI2.5T2 PO; NICO-676 TP; RANI300T4 PO; RISP2TAB85 PO; SPIR25TA6 PO
[2023-07-04 20:47] VITALS: BP 139/64; TEMP 98.2; O2SAT 100
[2023-07-04] MEDS: ACETAMINOPHEN 325 MG TABLET PO PRN (20:53)
[2023-07-04] MEDS: BLOOD SUGAR DIAGNOSTIC 1 EACH STRIP IN ONE (20:54)
[2023-07-04] MEDS: LORAZEPAM 0.5 MG TABLET PO PRN (20:57)
[2023-07-04] MEDS ORDERED: MAG HYDROX/AL HYDROX/SIMETH 30 ML UDC PO PRN (21:00)
[2023-07-04] MEDS ORDERED: MAGNESIUM HYDROXIDE 30 ML UDC PO PRN (21:00)
[2023-07-05 08:00] VITALS: BP 126/54; TEMP 98.6; O2SAT 97
[2023-07-05] MEDS ORDERED: BENZ1TAB7 PO (09:40)
[2023-07-05] MEDS ORDERED: ACET-2812 PO (09:40)
[2023-07-05] MEDS ORDERED: ENAL-78 PO (09:40)
[2023-07-05] MEDS ORDERED: INSU100V3 SQ (09:40)
[2023-07-05] MEDS ORDERED: DOCU100C36 PO (09:40)
[2023-07-05] MEDS ORDERED: MELA5TAB PO (09:40)
[2023-07-05] MEDS ORDERED: RISP3TAB61 PO (09:40)
[2023-07-05] MEDS ORDERED: METF-442 PO (09:40)
[2023-07-05] MEDS ORDERED: INSU100I30 SQ (09:40)
[2023-07-05] MEDS ORDERED: GLIM4TAB37 PO (09:40)
[2023-07-05] MEDS ORDERED: DEXTROSE 50%-WATER 50 ML DISP.SYRIN IV PRN (10:30)
[2023-07-05] MEDS: ENALAPRIL MALEATE (5 MG) 5 MG TABLET PO SCH (10:50)
[2023-07-05] MEDS: LISINOPRIL (5MG) 5 MG TABLET PO SCH (10:50)
[2023-07-05] MEDS: ALLOPURINOL 100 MG TABLET PO SCH (10:51)
[2023-07-05] MEDS: INSULIN REGULAR, HUMAN 100 UNIT/ML 3 ML VIAL SQ PRN (11:52)
[2023-07-05] MEDS: BLOOD SUGAR DIAGNOSTIC 1 EACH STRIP IN SCH (11:53)
[2023-07-05] MEDS: DIVALPROEX SODIUM 500 MG TABLET.DR PO SCH (14:32)
[2023-07-05 16:00] VITALS: BP 100/56; TEMP 98.6; O2SAT 97
[2023-07-05] MEDS: risperiDONE 1 MG TABLET PO SCH (17:22)
[2023-07-05] MEDS: METFORMIN 500 MG TABLET PO SCH (17:22)
[2023-07-05] MEDS: GLIMEPIRIDE 4 MG TABLET PO SCH (17:23)
[2023-07-05] MEDS: FUROSEMIDE 20 MG TABLET PO SCH (17:28)
[2023-07-05 18:39] LABS: ALBUMIN 3.3 g/dL (3.4-5.0); BILIRUBIN,TOTAL 0.2 mg/dL (0.2-1.0); CALCIUM, SERUM 9.1 mg/dL (8.5-10.1); CREATININE 0.9 mg/dL (0.6-1.3); TOTAL PROTEIN, SERUM 6.5 g/dL (6.4-8.2)
[2023-07-05 18:40] LABS: CHOLESTEROL 88 mg/dL (<200); HDL CHOLESTEROL 41 mg/dL (40-60); LDL 34 mg/dL (0-99); TRIGLYCERIDES 108 mg/dL (30-150)
[2023-07-05] MEDS: DOCUSATE SODIUM 100 MG CAPSULE PO SCH (21:20)
[2023-07-05] MEDS: ATORVASTATIN 40 MG TABLET PO SCH (21:20)
[2023-07-05] MEDS: ZOLPIDEM TARTRATE 5 MG TABLET PO PRN (21:31)
[2023-07-05 22:37] VITALS: BP 121/60; TEMP 98.2; O2SAT 98
[2023-07-05 22:39] VITALS: BP 121/60; TEMP 98.2; O2SAT 98
[2023-07-06 08:00] VITALS: BP 148/85; TEMP 98.1; O2SAT 100
[2023-07-06] MEDS: LEVOTHYROXINE SODIUM 88 MCG TABLET PO SCH (08:17)
[2023-07-06] MEDS: INSULIN GLARGINE, 100 UNIT/ML CARTRIDGE SQ SCH (08:23)
[2023-07-06] MEDS: SPIRONOLACTONE 25 MG TABLET PO SCH (08:53)
[2023-07-06] MEDS: GABAPENTIN 100 MG CAPSULE PO SCH (10:40)
[2023-07-06 16:00] VITALS: BP 115/76; TEMP 98.6; O2SAT 98
[2023-07-06 16:14] LABS: BASOPHILS % (AUTO) 0.6 % (0.0-2.0); EOSINOPHILS # (AUTO) 0.1 K/uL (0.0-0.7); EOSINOPHILS % (AUTO) 1.7 % (0.0-6.0); HEMATOCRIT 39 % (39-51); HEMOGLOBIN 13.5 g/dL (13.5-17.5); LYMPHOCYTES # (AUTO) 2.2 K/uL (0.8-4.8); LYMPHOCYTES % (AUTO) 47.5 % (20.0-44.0); MEAN CORPUSCULAR HEMOGLOBIN 30 PG (26.0-33.0); MEAN CORPUSCULAR HGB CONC 35 g/dl (31.0-36.0); MEAN CORPUSCULAR VOLUME 88 fL (80-96); MONOCYTES # (AUTO) 0.4 K/uL (0.1-1.30); MONOCYTES % (AUTO) 8.5 % (2.0-12.0); NEUTROPHILS # (AUTO) 1.9 K/uL (1.8-8.9); NEUTROPHILS % (AUTO) 41.7 % (43.0-81.0); PLATELET COUNT (AUTO) 123 K/uL (150-450); RED BLOOD CELL COUNT(AUTO) 4.46 MIL/uL (4.5-6.0); RED CELL DISTRIBUTION WIDTH 14.6 % (11.5-15.0); WHITE BLOOD COUNT (AUTO) 4.6 K/uL (4.3-11.0)
[2023-07-06 16:15] LABS: CALCIUM, SERUM 9.1 mg/dL (8.5-10.1); CREATININE 0.9 mg/dL (0.6-1.3); MAGNESIUM 1.5 mg/dL (1.8-2.4); POTASSIUM 4.1 mmol/L (3.5-5.1)
[2023-07-06 16:28] LABS: THYROID STIMULATING HORMONE 4.121 uIU/mL (0.358-3.74)
[2023-07-06 20:35] VITALS: BP 132/74; TEMP 97.5; O2SAT 99
[2023-07-06] MEDS: MAGNESIUM OXIDE 400 MG TABLET PO ONE (22:26)
[2023-07-07 08:00] VITALS: BP 137/70; TEMP 97.5; O2SAT 98
[2023-07-07 16:00] VITALS: BP 132/65; TEMP 98.2; O2SAT 97
[2023-07-07 20:00] VITALS: BP 115/68; TEMP 98.1; O2SAT 96
[2023-07-08 08:00] VITALS: BP 126/71; TEMP 98; O2SAT 97
[2023-07-08] MEDS ORDERED: hydrOXYzine PAMOATE 25 MG CAPSULE PO PRN (10:00)
[2023-07-08 16:00] VITALS: BP 118/69; TEMP 98.6; O2SAT 96
[2023-07-08] MEDS: clonazePAM 0.5 MG TABLET PO SCH (16:24)
[2023-07-08 20:00] VITALS: BP 131/76; TEMP 98.3; O2SAT 96
[2023-07-08] MEDS: risperiDONE 1 MG TABLET PO SCH (21:17)
[2023-07-08] MEDS: clonazePAM 1 MG TABLET PO SCH (21:18)
[2023-07-08] MEDS: GABAPENTIN 300 MG CAPSULE PO SCH (21:26)
[2023-07-09 08:00] VITALS: BP 134/70; TEMP 97.8; O2SAT 98
[2023-07-09] MEDS ORDERED: DEXTROSE 50%-WATER 50 ML DISP.SYRIN IV PRN (10:30)
[2023-07-09] MEDS: INSULIN REGULAR, HUMAN 100 UNIT/ML 3 ML VIAL SQ PRN (11:51)
[2023-07-09] MEDS: BLOOD SUGAR DIAGNOSTIC 1 EACH STRIP IN SCH (11:52)
[2023-07-09 16:00] VITALS: BP 114/60; TEMP 97.9; O2SAT 98
[2023-07-09 20:46] VITALS: BP 115/63; TEMP 97.8; O2SAT 98
[2023-07-09] MEDS: *INSULIN REGULAR(HUMULIN R)HUM 100 UNIT/ML VIAL SQ PRN (22:32)
[2023-07-10 08:00] VITALS: BP 123/57; TEMP 97.9; O2SAT 98
[2023-07-10 16:00] VITALS: BP 131/76; TEMP 98; O2SAT 100
[2023-07-10 21:12] VITALS: BP 119/64; TEMP 97.3; O2SAT 97
[2023-07-11 08:00] VITALS: BP 115/59; TEMP 98.3; O2SAT 96
[2023-07-11 08:08] VITALS: BP 115/59
[2023-07-11] MEDS: INSULIN GLARGINE, 100 UNIT/ML CARTRIDGE SQ SCH (09:27)
[2023-07-11] MEDS ORDERED: INSU100I30 SQ (10:55)
[2023-07-11] MEDS ORDERED: *INS REG3 SQ (10:55)
== END 2023-07-11 12:55 | DRG 885 ==
LOC: GPS 19:50
PROVIDERS: ADMIT Psychiatry & Neurology Psychiatry; ATTEND Nurse Practitioner Acute Care
DX: F25.0 Schizoaffective disorder, bipolar type (principal); U07.1 COVID-19; I11.0 Hypertensive heart disease with heart failure; E11.65 Type 2 diabetes mellitus with hyperglycemia; D68.59 Other primary thrombophilia; F29 Unspecified psychosis not due to a substance or known physiological condition; I50.9 Heart failure, unspecified; I25.10 Atherosclerotic heart disease of native coronary artery without angina pectoris; J44.9 Chronic obstructive pulmonary disease, unspecified; G40.909 Epilepsy, unspecified, not intractable, without status epilepticus; Z78.9 Other specified health status; Z91.51 Personal history of suicidal behavior; M10.9 Gout, unspecified; E78.5 Hyperlipidemia, unspecified; E03.9 Hypothyroidism, unspecified; Z90.49 Acquired absence of other specified parts of digestive tract; Z79.4 Long term (current) use of insulin; Z79.84 Long term (current) use of oral hypoglycemic drugs; Z79.890 Hormone replacement therapy; E66.01 Morbid (severe) obesity due to excess calories; Z68.32 Body mass index [BMI] 32.0-32.9, adult; F41.9 Anxiety disorder, unspecified; Z80.9 Family history of malignant neoplasm, unspecified; Z82.49 Family history of ischemic heart disease and other diseases of the circulatory system; Z72.0 Tobacco use
CPT/HCPCS: 36415; 80048-TC; 80053-TC; 80061-TC; 82962-TC; 83735-TC; 84100-TC; 84443-TC; 85025-TC; 87081-TC; J1815